=== PATIENT | male | born 1960 | race Caucasian/White ===

== ENCOUNTER 2017-04-12 10:50 | Outpatient (CLI) | payer OTHER ==
--- NOTE | 2017-04-12 14:12 | RAD ---
THREE VIEWS OF THE LEFT SHOULDER: DATE: 04/12/17. COMPARISON: None. HISTORY: Left shoulder pain radiating down the arm. FINDINGS: There is mild joint space narrowing involving the left AC joint with minimal osteophyte formation. T here is no widening of the left coracoclavicular interspace. There is no fracture or evidence of dis location. IMPRESSION: Mild left acromioclavicular joint degenerative change. No acute osseous abnormality. POS: [facility]HEL[facility]
== END 2017-04-12 10:51 | disposition home or self-care (01) ==
LOC: MADRAD 10:50
PROVIDERS: ATTEND Obstetrics & Gynecology
DX: E11.65 Type 2 diabetes mellitus with hyperglycemia (principal); M19.012 Primary osteoarthritis, left shoulder